=== PATIENT | male | born 1950 | race Caucasian/White ===

== ENCOUNTER 2018-01-28 11:41 | Emergency (ER) | payer OTHER, MEDICARE ==
--- NOTE | 2018-01-28 11:51 | EDPHY ---
H & P Stated Complaint: Smashed L index finger yesterday; "I only want it cleaned" Time Seen by Provider: 01/28/18 11:50 HPI/ROS: HPI: This is a 67-year-old male who presents with Chief Complaint: Smashed L index finger yesterday; "I only want it cleaned" Location: left index finger Quality:smashed Duration: Yesterday afternoon Signs and Symptoms: No bleeding, no radiation, no numbness, no weakness, no tingling, no incontinence, no decreased range of motion, no swelling, no pain, no fever Timing: Acute Severity: Mild Context: Patient is right-hand dominant, presents with complaints left index finger skin trauma. He reports that he was attaching a trailer to the back of his vehicle when it slipped and smashed his finger up against the tailgate of his vehicle. He noted skin tear to his left index finger. He washed it thoroughly with Betadine and applied a Band-Aid. He reports to me that he did not break his finger and does not have any paresthesias/weakness/decreased range of motion. He is only requesting for a "proper dressing" be applied. Modifying Factors: Betadine and dressing Comment: ROS: see HPI Constitutional: No fever, no chills, no weight loss Eyes: No blurred vision Respiratory: No shortness of breath, no cough Cardiovascular: No chest pain Gastrointestinal: No nausea, no vomiting no diarrhea Genitourinary: No dysuria Extremities: No myalgias Neurologic: No weakness, no numbness Skin: No rashes Hematologic: No bruising, no bleeding MEDICAL/SURGICAL/SOCIAL HISTORY: Medical history: Hypothyroidism, hyperlipidemia Surgical history: Denies Social history: retired. CONSTITUTIONAL: Extremely pleasant elderly white male, white belcher noted, awake and alert, no obvious distress HEENT: atraumatic, normocephalic Cardiovascular: Normal S1/S2, regular rate, regular rhythm, without murmur rub or gallop. PULMONARY/CHEST: Symmetrical and nontender. no crepitus. Clear to auscultation bilaterally. Good air movement. No accessory muscle usage. ABDOMEN: Soft, nondistended, nontender, no ecchymosis. EXTREMITIES: 2/2 pulses, strength 5/5, left index finger palmar aspect small superifical skin avulsion noted approximately 1/4 inch in size near PIP joint. DIP/PIP/MCP flexion/extension intact with good light touch sensation. no deformities, no clubbing, no cyanosis or edema. NEUROLOGICAL: no focal neuro deficits. GCS 15. Light touch sensation intact. SKIN: Warm and dry, no erythema. no rash. Good capillary refill. Source: Patient Exam Limitations: No limitations - Personal History Current Tetanus Diphtheria and Acellular Pertussis (TDAP): Yes - Medical/Surgical History Other PMH: hypothyroid. cholesterol - Social History Smoking Status: Never smoked Constitutional: Initial Vital Signs Heart Rate 68 01/28/18 11:41 Respiratory Rate 16 01/28/18 11:41 Blood Pressure 121/85 H 01/28/18 11:41 O2 Sat (%) 98 01/28/18 11:41 O2 Delivery Mode Room Air Allergies/Adverse Reactions: Sulfa (Sulfonamide Antibiotics) Allergy (Mild, Verified 01/28/18 11:47) Rash Home Medications: Medication Instructions Recorded Levothyroxine [Synthroid 88 mcg 88 mcg PO DAILY06 01/28/18 (*)] Rosuvastatin Calcium [Crestor 20mg 20 mg PO DAILY 01/28/18 (*)] Medical Decision Making ED Course/Re-evaluation: Patient has politely refused x-ray imaging to evaluate for fracture. No signs of neurovascular compromise/tenting of skin/compartment syndrome/ extremities and joints examined above and below area of concern and are neurovascularly intact. Superficial skin avulsion noted; no signs of cellulitis; laceration repair not indicated Clean with mild soap and water; Xeroform and tube gauze applied. Verbal and written wound care instructions provided This patient was seen under the supervision of my secondary supervising physician. I evaluated care for this patient independently. Differential Diagnosis: Differential diagnosis includes but is not limited to phalanx fracture, laceration, nerve injury, tendon injury. Departure - Departure Disposition: Home, Routine, Self-Care Clinical Impression: Superficial injury of left index finger Qualifiers: Encounter type: initial encounter Qualified Code(s): S60.941A - Unspecified superficial injury of left index finger, initial encounter Avulsion of skin of finger without complication Qualifiers: Encounter type: initial encounter Qualified Code(s): S61.209A - Unspecified open wound of unspecified finger without damage to nail, initial encounter Condition: Good Instructions: Skin Avulsion (ED), Crush Injury (ED) Additional Instructions: Keep the dressing dry and in place for 48 hours. After 48 hours, you may remove the dressing; wash the site daily with mild soap and water; then pat dry. Apply topical antibiotic ointment daily and keep covered until fully healed. Take Tylenol 650 mg every 4 hours and/or Ibuprofen 600 mg every 8 hours with food as needed for pain. Return to the ER immediately if you experience new or worsening pain, discoloration, numbness, tingling, or any other symptoms that concern you. Referrals: ALVAREZ VILLALBA [Primary Care Provider] - As per Instructions
[2018-01-28] MEDS ORDERED: TDAP ADULT 0.5 ML INJ (BOOSTRIX) IM ONE (12:29)
[2018-01-28 12:35] VITALS: BP 125/46
== END 2018-01-28 12:37 | disposition home or self-care (01) ==
DX: S61.201A Unspecified open wound of left index finger without damage to nail, initial encounter (principal); Z23 Encounter for immunization; W23.0XXA Caught, crushed, jammed, or pinched between moving objects, initial encounter; Y99.8 Other external cause status; Y93.89 Activity, other specified